=== PATIENT | male | born 1980 | race Caucasian/White ===

== ENCOUNTER 2024-04-08 19:46 | Observation (INO) | payer SELFPAY ==
[2024-04-08] VITALS (13 sets, daily range): BP systolic 105–184; BP diastolic 74–159
[~2024-04-08] VITALS: Ht 177.8 cm; Wt 48.0 kg
--- NOTE | 2024-04-08 19:50 | NUR ---
PT TO RM 8 VIA WHEELCHAIR AND PLACED ON STRETCHER
[2024-04-08] MEDS ORDERED: SODIUM CHLORIDE 0.9% 1,000 ML IV ONE ×2 (20:05→21:15)
[2024-04-08] MEDS ORDERED: ALPRAZolam 1 MG/TAB PO ONE (20:05)
[2024-04-08] MEDS ORDERED: ASPIRIN 81 MG/TAB PO ONE (20:10)
[2024-04-08 20:25] LABS: BASO% 0.1 % (0-3); HEMATOCRIT 51.7 % (39.0-50.0); HEMOGLOBIN 16.7 g/dl (14.0-18.0); IMMATURE GRANULOCYTES 4.3 % (0.0-5.0); LYMPH% 11.2 % (15-41); MEAN CELL VOLUME 90.1 fL CALC (80.0-100.0); MEAN CORPUSCULAR HGB 29.1 pG CALC (26.0-32.0); MEAN CORPUSCULAR HGB CONC 32.3 g/dL CAL (32.0-36.0); MONO% 5.6 % (2-13); NEUT# 15.89 thou/uL (1.82-7.42); NEUT% 78.8 % (42-76); RED BLOOD COUNT 5.74 mill/uL (4.70-6.10); RED CELL DISTRI WIDTH 12.5 % (11.5-15.5)
--- NOTE | 2024-04-08 20:30 | NUR ---
[facility] READS HI AT THIS TIME.
[2024-04-08 20:37] LABS: ALBUMIN 4.6 g/dL (3.2-5.0); ALKALINE PHOSPHATASE 224 u/l (38-126); ANION GAP 40 (6-22 (CALC)); BILIRUBIN, TOTAL 0.6 mg/dL (0.2-1.3); BUN 63 mg/dL (9-20); BUN/CREATININE RATIO 28 (12-20 (CALC)); CARBON DIOXIDE 14 mmol/l (22-30); CHLORIDE 91 mmol/l (95-108); CREATININE 2.3 mg/dL (0.7-1.3); ESTIMATED GFR 35 ML/MIN (>=90 (CALC)); MAGNESIUM 3.9 mg/dL (1.6-2.3); POTASSIUM 3.3 mmol/l (3.5-5.1); SGOT/AST 29 u/l (17-59); SODIUM 143 mmol/l (137-146); TOTAL PROTEIN 7.3 g/dL (6.3-8.2)
--- NOTE | 2024-04-08 20:38 | NUR ---
REPORT GIVEN TO Preston NUÑEZ RN.
--- NOTE | 2024-04-08 20:38 | NUR ---
PATIENT REFUSED ORAL MEDS, EDP NOTIFIED.
[2024-04-08 20:42] LABS: PROTHROMBIN TIME 10.7 SECONDS (9.0-12.5)
[2024-04-08 20:54] LABS: ETHYL ALCOHOL < 10 mg/dl (0-30)
[2024-04-08] MEDS ORDERED: INSULIN REGULAR (HUMAN) 100 UNIT/ML INJ IV ONE (20:55)
[2024-04-08] MEDS ORDERED: POTASSIUM CHLORIDE 20MEQ 100 ML IV ONE (21:15)
[2024-04-08] MEDS ORDERED: INSULIN REGULAR (HUMAN) IN SOD 100 ML IV PRN ×2 (21:25→21:45)
[2024-04-08] MEDS ORDERED: NACL 0.45% IV PRN ×2 (21:45→22:15)
[2024-04-08] MEDS ORDERED: SODIUM CHLORIDE 0.9% 1,000 ML IV PRN (21:45)
[2024-04-08] MEDS ORDERED: POTASSIUM CHLORIDE 20MEQ 100 ML IV PRN (21:45)
[2024-04-08] MEDS ORDERED: POTASSIUM CHLORIDE IV PRN ×2 (21:45→22:15)
[2024-04-08] MEDS ORDERED: SODIUM CHLORIDE 0.45% 1,000 ML IV PRN (21:45)
[2024-04-08] MEDS ORDERED: DEXTROSE 5% w/NACL 0.45 1,000 ML IV PRN (21:45)
[2024-04-08] MEDS ORDERED: D5 1/2 NaCL W/KCL 20MEQ 1,000 ML IV PRN (21:45)
[2024-04-08] MEDS ORDERED: ACETAMINOPHEN 325 MG/TAB PO PRN (21:55)
[2024-04-08] MEDS ORDERED: IPRATROPIUM-Albuterol 0.5MG-2.5MG/3 ML NEB PRN (22:00)
[2024-04-08] MEDS ORDERED: Heparin SODIUM (Porcine) 5,000 UNITS/ML SDV SC SCH (22:00)
[2024-04-08] MEDS ORDERED: DOXYCYCLINE HYCLATE 100 MG in SODIUM CHLORIDE 0.9% 100 ML IV SCH (22:15)
[2024-04-08] MEDS ORDERED: CEFEPIME HYDROCHLORIDE 2 GM in SODIUM CHLORIDE 0.9% 100 ML IV SCH (22:20)
--- NOTE | 2024-04-08 22:38 | NUR ---
REPORT GIVEN TO Preston SAN RN.
--- NOTE | 2024-04-08 22:38 | NUR ---
ACCU CHECK READS HI
--- NOTE | 2024-04-08 23:15 | NUR ---
PATIENT TRASNPORTED TO ICU BED 6. PATIENT WASHED UP, CARE HANDED OVER TO A JASWINDER BONILLA
--- NOTE | 2024-04-08 23:30 | NUR ---
PT ARRIVED TO ICU BED 6 VIA STRETCHER @ APPROX 2305. PT TRANSFERED BY STAFF FROM STRETCHER TO BED. PT IS SEVERELY AGITATED AND COMBATIVE TOWARDS STAFF, REFUSING CARE, DOES NOT FOLLOW COMMANDS. PT EDUCATED ON NEED FOR MEDICATION AND MONITORING, PT DISINTERESTED. INSULIN GTT AND 1/2 NS W/ 20 mEq OF K+ FLUIDS INITIATED PER PROVIDER ORDERS. ABX INITIATED WELL. GLUCOMETER READS HIGH. PREV LAB DRAW SHOWED A GLUCOSE OF 1621 AND A LACTIC OF 4.2. HR IS 97, SINUS W/ T WAVE DEPRESSION. BP ELEVATED. CALL LIGHT IN REACH
[2024-04-09] VITALS (24 sets, daily range): BP systolic 69–152; BP diastolic 31–134
[2024-04-09 01:07] LABS: BILIRUBIN, TOTAL 0.5 mg/dL (0.2-1.3); CREATININE 1.9 mg/dL (0.7-1.3); POTASSIUM 2.9 mmol/l (3.5-5.1); TOTAL PROTEIN 6.8 g/dL (6.3-8.2)
--- NOTE | 2024-04-09 01:58 | NUR ---
BLOOD GLUCOSE RESULT OF 1220 VIA LAB DRAW. INSULIN GTT @ 5 U/HR, 1/2 NS w/ 20 mEq OF K+ @ 50 ML/HR. PT REMAINS GUARDED, AGITATED, AND DISINTERESTED IN CARE.
--- NOTE | 2024-04-09 04:45 | NUR ---
NO CHANGES NOTED. PT RESTLESS, AGITATED W/ STAFF. REFUSING FINGER STICKS. PT EDUCATED ON NEED.
[2024-04-09 05:51] LABS: BASO% 0.2 % (0-3); HEMATOCRIT 51.5 % (39.0-50.0); IMMATURE GRANULOCYTES 1.4 % (0.0-5.0); MEAN CELL VOLUME 88.2 fL CALC (80.0-100.0); MEAN CORPUSCULAR HGB 29.1 pG CALC (26.0-32.0); MONO% 2.6 % (2-13); NEUT# 8.23 thou/uL (1.82-7.42); NEUT% 77.8 % (42-76); RED BLOOD COUNT 5.84 mill/uL (4.70-6.10); RED CELL DISTRI WIDTH 12.1 % (11.5-15.5)
[2024-04-09 06:06] LABS: ALBUMIN 4.1 g/dL (3.2-5.0); BILIRUBIN, TOTAL 0.6 mg/dL (0.2-1.3); CREATININE 1.8 mg/dL (0.7-1.3); MAGNESIUM 3.4 mg/dL (1.6-2.3); POTASSIUM 3.1 mmol/l (3.5-5.1)
[2024-04-09] MEDS ORDERED: MORPHINE SULFATE 4 MG/ML VIAL IV PRN (07:55)
--- NOTE | 2024-04-09 08:00 | NUR ---
REPORT RECEIVED FROM NIGHT NURSE. PATIENT AXO TO SELF ONLY, REORIENTED TO PLACE AND TIME. S1S2 NOTED, NORMAL SINUS ON TELE. LUNG SOUNDS CLEAR, NO COUGH OR SOB NOTED. ABDOMEN SOFT, NON DISTENDED, NON TENDER, WITH ACTIVE BOWEL SOUNDS. PATIENT REFUSED TO LET ME FEEL HIS PULSES AND STARTED TO GET AGITATED. REDNESS NOTED TO COCCYX.
--- NOTE | 2024-04-09 08:40 | NUR ---
0800 CALLED [facility] TO INITIATE TRANSFER. CONNECTED dR. CHAVES WITH [facility] INTENSIVEST. ACCEPTED FOR CONSULT TO [facility] AWAITING RETURN CALL FROM HOSPITALIST. [facility] REQUESTS TO TRY OTHER FACILITIES WELL 0820 CALLED [facility] TO INITIATE TRANSFER TO [facility] OR [facility] AWAITING PHONE CALL BACK. PATIENT ALERT BUT CONFUSED AND COMBATIVE WHEN TOUCHED. PATIEN REFUSING NEEDLE STICK BLOOD DRAW. DRAW TAKEN FROM RIGHT ANTECUBITAL TWO 8ML WASTE OF BLOOD DRAWN PRIOR TO SAMPLE TAKEN. PATIENT TOLERATED WELL. PATIENT BEING TRANSPORTED BY NURSE TO [place] FOR STAT CT BRAIN SCAN.
[2024-04-09 08:47] LABS: URINE BILIRUBIN - DIPSTICK Negative (NEGATIVE); URINE BLOOD DIPSTICK Negative (NEGATIVE); URINE GLUCOSE - DIPSTICK >=1000 mg/dL (NEGATIVE); URINE KETONE 15 mg/dL (NEGATIVE); URINE LEUK ESTERASE Negative (NEGATIVE); URINE NITRITE - DIPSTICK Negative (Negative); URINE PH 5.5 (4.5-8.0); URINE PROTEIN - DIPSTICK Trace mg/dL (NEG-TRACE); URINE SPECIFIC GRAVITY <=1.005; URINE UROBILINOGEN - DIPSTICK 0.2 E.U./dL (0.2)
[2024-04-09] MEDS ORDERED: CEFEPIME HYDROCHLORIDE 2 GM in SODIUM CHLORIDE 0.9% 100 ML IV SCH ×2 (09:00→11:00)
[2024-04-09 09:02] LABS: URINE COLOR Yellow
--- NOTE | 2024-04-09 09:15 | NUR ---
ATTEMPTED TO CONTACT PATIENT , NO ANSWER.
[2024-04-09] MEDS ORDERED: DOXYCYCLINE HYCLATE 100 MG in SODIUM CHLORIDE 0.9% 100 ML IV SCH (10:00)
--- NOTE | 2024-04-09 10:00 | NUR ---
PATIENT HAD INCONTIENT EPISODE. PATIENT CLEANED UP AND BEDDING CHANGED. PATIENT LAYING DOWN RESTING. PATIENT IS STILL CONFUSED AND SLIGHTLY COMBATIVE.
--- NOTE | 2024-04-09 11:00 | NUR ---
[facility] TRANSPORTED PATIENT TO [facility] VIA STRETCHER.
--- NOTE | 2024-04-09 11:25 | NUR ---
CALLED [facility], GAVE REPORT ON PATIENT TO RECEIVING NURSE SELMA.
== END 2024-04-09 11:00 | disposition short-term general hospital (02) | DRG 638 ==
LOC: ED 19:46 → ED-I 21:20 → ED 21:48 → ICU 21:49
PROVIDERS: Family Medicine; ADMIT Internal Medicine; ATTEND Internal Medicine
DX: E11.10 Type 2 diabetes mellitus with ketoacidosis without coma (principal); G93.49 Other encephalopathy; E87.0 Hyperosmolality and hypernatremia; E87.6 Hypokalemia; N17.9 Acute kidney failure, unspecified; D72.829 Elevated white blood cell count, unspecified; R64 Cachexia; Z68.1 Body mass index [BMI] 19.9 or less, adult
CPT/HCPCS: J0692; J1644; J2020; J3480